=== PATIENT | female | born 1965 | race Caucasian/White ===

== ENCOUNTER 2016-10-18 22:08 | Observation (INO) | payer BC ==
[~2016-10-18] VITALS: Ht 157.5 cm; Wt 136.5 kg
[2016-10-19] MEDS ORDERED: DYAZIDE 37.5-21 EACH PO (00:27)
[2016-10-19] MEDS ORDERED: AMLODIPINE-BEN1 EAC4 PO (00:28)
[2016-10-19] MEDS ORDERED: FOLIC ACID1 MG PO (00:29)
[2016-10-19] MEDS ORDERED: LOTENSIN20 MG PO (00:29)
[2016-10-19] MEDS ORDERED: METHOTREXATE2.5 MG PO (00:30)
[2016-10-19] MEDS ORDERED: PAROXETINE HCL10 MG PO (00:30)
[2016-10-19] MEDS ORDERED: ESTRACE2 MG PO (00:31)
== END 2016-10-19 11:25 | disposition short-term general hospital (02) ==
LOC: ER 22:08 → OBS 10-19 01:38 → IP 10-19 01:38
PROVIDERS: ADMIT Family Medicine
DX: K80.20 Calculus of gallbladder without cholecystitis without obstruction (principal); R10.13 Epigastric pain; R11.0 Nausea; R06.00 Dyspnea, unspecified; I10 Essential (primary) hypertension; E66.01 Morbid (severe) obesity due to excess calories; G47.33 Obstructive sleep apnea (adult) (pediatric); F41.9 Anxiety disorder, unspecified; Z79.899 Other long term (current) drug therapy; Z90.710 Acquired absence of both cervix and uterus; Z90.89 Acquired absence of other organs
CPT/HCPCS: A9150; G0378; J1650; J2175; J2270; J2405; J2550; J3010; J8499

== ENCOUNTER → 2016-10-30 | Outpatient (CLI) | payer BC ==
[~2016-10-30] MED LIST: AMLODIPINE-BEN1 EAC4 PO; DYAZIDE 37.5-21 EACH PO; ESTRACE2 MG PO; FOLIC ACID1 MG PO; LOTENSIN20 MG PO; METHOTREXATE2.5 MG PO; PAROXETINE HCL10 MG PO
== END | disposition short-term general hospital (02) ==
LOC: SURGOP 04:01 → CLSURG 04:15
DX: Z48.815 Encounter for surgical aftercare following surgery on the digestive system (principal); Z90.49 Acquired absence of other specified parts of digestive tract